=== PATIENT | male | born 1975 | race Caucasian/White ===

== ENCOUNTER → 2018-11-09 | Outpatient (CLI) | payer BC ==
[2018-11-09 12:17] LABS: Anisocytosis Slight; Basophils # (A) 0.1 k/uL (0-0.2); Basophils % (A) 1 %; Eosinophils # (A) 0.1 k/uL (0-0.7); Eosinophils % (A) 0 %; HCT 51.4 % (39.0-53.0); HGB 16.9 gm/dL (13.0-17.5); Lymphocytes # (A) 2.3 k/uL (1.0-4.8); Lymphocytes % (A) 17 %; MCH 28.5 pg (25.0-35.0); MCV 86.4 fL (80.0-100.0); Mean Platelet Volume 7.7; Monocytes # (A) 0.9 k/uL (0-1.0); Monocytes % (A) 6 %; Neutrophils % (A) 74 %; Platelet Count 122 k/uL (150-450); RBC 5.95 m/uL (4.30-5.90); RDW 16.4 % (11.5-15.5); WBC 13.5 k/uL (3.8-10.6)
[2018-11-09 15:24] LABS: Erythrocyte Sedimentation Rate 1 mm/hr (0-15)
[2018-11-09 16:21] LABS: Vitamin D 25 Hydroxy 26.8 ng/mL (30.0-100.0)
[2018-11-09 16:56] LABS: ALT 97 U/L (10-49); AST 30 U/L (14-35); African American GFR (CKD) 107.1 (60.0-200.0); Albumin/Globulin Ratio 2.32 (1.60-3.17); Alkaline Phosphatase 72 U/L (41-126); C Reactive Protein <0.4 mg/dL (0.0-0.8); Calcium 9.5 mg/dL (8.7-10.3); Carbon Dioxide 19.9 mmol/L (21.6-31.8); Chloride 104 mmol/L (96-109); Cholesterol 242 mg/dL (0-200); Globulin 1.9 g/dL (1.6-3.3); Glucose 74 mg/dL (70-110); LDL Cholesterol,Calculated 134.6 mg/dL (0.0-131.0); Potassium 3.9 mmol/L (3.5-5.5); Sodium 138 mmol/L (135-145); Total Bilirubin 1.3 mg/dL (0.3-1.2); Total Protein 6.3 g/dL (6.2-8.2)
[2018-11-09 20:38] LABS: Hemoglobin A1C 6.1 % (4.0-6.0)
== END | disposition home or self-care (01) ==
LOC: LABWHC1 10:21
PROVIDERS: ATTEND Family Medicine
DX: Z13.1 Encounter for screening for diabetes mellitus (principal); I10 Essential (primary) hypertension; K50.919 Crohn's disease, unspecified, with unspecified complications; R42 Dizziness and giddiness
CPT/HCPCS: 36415; 80053; 80061; 82306; 82607; 83036; 84443; 84481; 85025; 85652; 86140